=== PATIENT | male | born 1975 | race Caucasian/White ===

== ENCOUNTER 2018-07-10 08:10 | Day surgery (SDC) | payer BC, SELFPAY ==
[2018-05-22 14:25] VITALS: BMI 33.3
--- NOTE | 2018-07-05 15:25 | EKG12_ITS ---
Test Reason : PRE OP Blood Pressure : / mmHG Vent. Rate : 066 BPM Atrial Rate : 066 BPM P-R Int : 174 ms QRS Dur : 092 ms QT Int : 404 ms P-R-T Axes : 039 -60 040 degrees QTc Int : 423 ms Normal sinus rhythm Left axis deviation Abnormal ECG Confirmed by ADRIAN NAVARRO, SUSANA ([id number]), make up editor HOWARD DEAN ([id number]) on 07/08/2018 1:17:02 PM Referred By: Joseluis Samuels Confirmed By:SUSANA CAMPBELL MD
[2018-07-05 16:12] LABS: Hematocrit 45.8 % (40-54); Hemoglobin 15.8 g/dl (13.0-16.5); Mean Corp Hgb Conc 34.5 g/gl (32-36); Mean Corpuscular Hgb 29.3 pg (27.0-32.0); Mean Platelet Vol. 9.5 fl (6.2-12.0); Platelet Count 255 K/mm3 (150-450); RBC Distribution Width CV 12.1 % (11.6-14.6); RBC Distribution Width SD 37.4 fl (35.1-43.9); Red Blood Count 5.39 M/mm3 (4.6-6.2); White Blood Count 6.6 K/mm3 (4.4-11.0)
[2018-07-05 16:14] LABS: Scan Indicated on CBC? Y/N NO
[2018-07-05 16:29] LABS: Anion Gap 8 (5-15); BUN 11 mg/dL (7-18); Calcium,Total 8.6 mg/dL (8.5-10.1); Chloride 104 mmol/L (98-107); EST Glomerular Filtration Rate 78 mL/min (>60); Est Glom Filt Rate - Afr Amer 95 mL/min (>60); Glucose 92 mg/dL (74-106); Potassium 3.4 mmol/L (3.5-5.1); Sodium Level 144 mmol/L (136-145)
[2018-07-10] VITALS (7 sets, daily range): BP systolic 121–168; BP diastolic 73–91; PULSE 65–91; RESP 16–18; TEMP 36.1–36.9; O2SAT 96–100; BMI 32.5
--- NOTE | 2018-07-10 08:34 | HP.PCM_ITS ---
Problem List (1) Bilateral inguinal hernia Status: Acute Qualifiers: History of Present Illness Date of Admission: 07/10/18 Chief Complaint: Bilateral inguinal hernias The patient is a 42 year old M who presents for an elective bilateral inguinal hernia repair. Patient denies recent hospitalizations or illnesses since the last time we evaluated him in the office. He denies change in bowel habits. He denies groin pain today. Patient denies previous complications with anesthesia. He denies previous myocardial infarction, stroke, blood clots in his legs or lungs. He has never had to see a meals on wheels driver before. Patient's previous history per Dr. Samuels: JOSE CRYSTAL, is a 42 M who presents to the office today for surgical consultation regarding suspected bilateral inguinal hernias. The patient is referred by his primary care physician Dr Marvin Sue and a written copy of my surgical consult and recommendations will be returned to him. The patient works at [employer]. Within the past 6 months he has resumed doing weightlifting activities. Looking in the [place] notice a bulge in the right groin although he did not have a sudden injury. He was examined by Dr. Hubbard was noted to have distinctly a right inguinal hernia and likely a small left inguinal hernia. It is of additional note that October 02, [address] Gadiel Jo he had a colonoscopy. Localized area of mucosa in the terminal ileum moderately inflamed and ulcerated was identified. Biopsies showed focal active ileitis. Random colonic biopsies were not remarkable. The patient recalls that he was treated with he believes Entocort. Diarrhea symptoms seem to improve. He is not been on medication for a long period of time. He currently denies abdominal pain or acute problems. He states that pending the food he eats he can have some discomfort. This is not a significant issue for him he is not interested in pursuing that at this time. Past Medical History Medical History: Medical History (Last Reviewed 07/10/18 @ 08:33 by Liberty Davies PA-C) Bilateral inguinal hernia (Acute) K40.20 No significant medical problems Allergies No Known Allergies Allergy (Verified 06/05/18 15:49) Home Medications: Ambulatory Orders Medication Instructions Recorded NK 05/22/18 Surgical History: Surgical History (Last Reviewed 07/10/18 @ 08:33 by Liberty Davies PA-C) History of colonoscopy Onset Date: ~2015 Z98.890 Status post anal fissurectomy Onset Date: ~2002 Z98.890, Z87.19 Psychiatric History: No pertinent psych hx Lives: Spouse/ Significant Other Smoking Status: Never smoker - *Family History Maternal Family History: Family History (Last Reviewed 07/10/18 @ 08:33 by Liberty Davies PA-C) Mother Hypertension History Items: Hypertension Paternal Family History: Family History (Last Reviewed 07/10/18 @ 08:33 by Liberty Davies PA-C) Mother Hypertension History Items: No pertinent history Review of Systems Constitutional: Denies: Chills, Fever, Weight Change HEENT: Denies: Head Aches, Sinus Congestion, Sinus Drainage Cardiovascular: Denies: Chest Pain, Palpitations Respiratory: Denies: Cough, Shortness of breath at rest, Sputum production Gastrointestinal: Denies: Abdominal Pain, Nausea, Vomiting Genitourinary: Denies: Dysuria Musculoskeletal: Denies: Joint Pain, Joint Tenderness Skin: Denies: Rash, Wounds Neurological: Denies: Numbness, Tingling, Focal weakness Psychiatric: Denies: Anxiety, Depression, Homicidal Ideations, Suicidal Ideation s Hematologic/ Lymphatic: Denies: Easy Bruising, Easy Bleeding VTE Information - Inpt Only VTE Present on Admission: Yes VTE Mechan Device Prophylaxis: SCD's - Physical Exam General: Alert, Oriented x3, Cooperative HEENT: Atraumatic, PERRLA, EOMI, Normocephalic Neck: Supple, No JVD, Negative Carotid Bruits Lungs: Clear to auscultation, Normal air movement Cardiovascular: Regular rate, No murmurs Abdomen: Bowel Sounds Present, Soft, Non Tender, Hernia - Bilateral inguinal hernias Extremities: No edema, Capillary Refill Less than 3 Seconds Skin: No rashes, No breakdown Musculoskeletal: No Tenderness to Palpation of Joints or Extremities Neurological: Cranial nerves II-XII grossly intact Psych/Mental Status: Normal Affect, Appropriate Body Mass Index (BMI) 33.3 Assessment/Plan All Active Problems (Last Updated 05/22/18 @ 14:25 by Lindsay Ramos) Bilateral inguinal hernia (Acute) Dr. Samuels will plan to perform a laparoscopic bilateral inguinal hernia repair with mesh. Procedure risks, benefits and details have been reviewed with the patient. Patient and his spouse have been given the opportunity to ask and have questions answered. Patient verbally understands and agrees to proceed with the proposed procedure. Code Visit Inpatient E&M: 73279 Subs Hosp L1 - No Charge. Update H&P
--- NOTE | 2018-07-10 11:01 | DCINST_ITS ---
Discharge Diet: Light diet - advance as tolerated - if you have questions about your diet instructions, please talk to you doctor. Discharge Activity: May Not Drive - for 3-5 days or while taking narcotic pain medicine. May shower in (days): 1 Lifting Restrictions: 10 pounds Call your doctor if your incision/area has: Continuous Slow Oozing, Sudden Increased Bleeding, Increased Pain/ Swelling, Increased Redness, Foul Smelling Discharge Call your doctor if you observe: Fever of 101 or Higher Suture Line Care: Avoid Pulling/Pushing, Avoid Pinching/Bending Additional Dressing/Incision Instructions:: Change or remove dressing in 4 days. Leave steri-strips in place for 1 week. Allergies/Adverse Reactions: Allergies No Known Allergies Allergy (Verified 06/05/18 15:49) Medications to take at Discharge NK 05/22/18 Orders to be completed after discharge: 12 Lead EKG [CVS] Time Frame: 06/05/18, Facility: [facility], Location: Cardiovascular Services Basic Metabolic Profile (BMP) Time Frame: 06/05/18, Location: Laboratory CBC W/Diff, Automated Time Frame: 06/05/18, Location: Laboratory Primary Care Physician: Marvin Sue MD [Primary Care Provider] - Test Results: Test results from this visit will be discussed in further detail at your follow- up appointment, if applicable. Please Follow Up With: Joseluis Samuels MD - [phone] When: Call to make an appointment to be seen in about 10 days.
[2018-07-10] MEDS: Cefazolin 2 GM in 0.9% Normal Saline 100 ML IV (11:27)
--- NOTE | 2018-07-10 12:36 | PCM.OPRPT ---
Problem List (1) Bilateral inguinal hernia Status: Acute Qualifiers: Report of Operation Date of Procedure: 07/10/18 Pre-Operative Diagnosis: Bilateral inguinal hernias Post-Operative Diagnosis: Bilateral direct inguinal hernias Surgery/Procedure Performed:: Laparoscopic bilateral inguinal herniorrhaphy Description of Surgical Findings:: Timeout and informed consent was obtained. 42-year-old gent was taken out from placement table underwent general endotracheal intubation anesthesia. The abdomen is sterilely prepped draped. Ancef 2 g given intravenous preoperatively. 0.5% Marcaine was used as a local anesthetic. Throughout the procedure total 30 cc was used. Skin sites were pre-anesthetized. A vertical infraumbilical incision was created holding sutures of 0 Vicryl placed varies needle inserted saline drop test performed the abdomen was insufflated with CO2 to a pressure of 10 mmHg pressure. To me trocar inserted 10 lap scope inserted no evidence of intraocular injuries under direct visitation ileal inguinal nerve blocks were performed with a Marcaine. 5-minute ports were placed in the right left lower quadrant. Bilateral direct hernias were identified photographs obtained. The left hernia was addressed first the peritoneum superior lateral to the internal ring was incised carried medially the peritoneum was completely dissected free the direct defect identified the direct indirect and femoral area identified. A Bard 3D max large mesh lot number NET REPAIRER [id number] expiry date 04/12/2023 was selected. It was placed so as to cover the defect. It fit very nicely secure strap was used laterally superiorly and medially. I then elevated the peritoneum on the right side similarly. This was dissected free the direct hernia dissected free the mesh from the left side identified a large right-sided Bard 3 DMax mesh selected lot number NET REPAIRER [id number] expiry date 09/10/2022 it also fit very nicely into position. It was secured with secure strap. Excellent positioning was achieved the measurement in the middle and nicely covered bilateral groins. The abdomen was then deflated to 5 mmHg pressure. The peritoneum was approximated to itself. On the right side small amount of bleeding was obtained from the inferior epigastric. A small stab incision was created and using a 0 Vicryl in a GraNee needle a very loose through and through suture was used to help secure that. That was nicely achieved. Some of the peritoneum was also reapproximated using hemo-lock clip to assure that complete access to the mesh was obliterated. Both groins inspected both groins hemostatic both groins with complete obliteration of the mesh. Trochars were removed under visualization the abdomen was allowed to deflate of CO2 the fascia at the umbilicus proximal #2-0 Vicryl [id number] suture skin edges proximal interrupted 4 Monocryl subdermal stitches Steri-Strips Telfa and OpSite dressings applied sponge and instrument and needle counts blood loss was minimal. Was taken to the recovery area in satisfactory condition without apparent complication. Specimens none. Drains none. Blood loss minimal. Joseluis Samuels M.D., F.A.C.S. Type of Anesthesia:: General Anesthesiologist: Margarita Aguillon
[2018-07-10] MEDS: Bupivacaine Mpf 0.5% 30 ML VIAL (12:40)
--- NOTE | 2018-07-10 12:40 | OP.PCM_ITS ---
Problem List (1) Bilateral inguinal hernia Status: Acute Qualifiers: Report of Operation Date of Procedure: 07/10/18 Pre-Operative Diagnosis: Bilateral inguinal hernias Post-Operative Diagnosis: Bilateral direct inguinal hernias Surgery/Procedure Performed:: Laparoscopic bilateral inguinal herniorrhaphy Description of Surgical Findings:: Timeout and informed consent was obtained. 42-year-old gent was taken out from placement table underwent general endotracheal intubation anesthesia. The abdomen is sterilely prepped draped. Ancef 2 g given intravenous p reoperatively. 0.5% Marcaine was used as a local anesthetic. Throughout the procedure total 30 cc was used. Skin sites were pre-anesthetized. A vertical infraumbilical incision was created holding sutures of 0 Vicryl placed varies needle inserted saline drop test performed the abdomen was insufflated with CO2 to a pressure of 10 mmHg pressure. To me trocar inserted 10 lap scope inserted no evidence of intraocular injuries under direct visitation ileal inguinal nerve blocks were performed with a Marcaine. 5-minute ports were placed in the right left lower quadrant. Bilateral direct hernias were identified photographs obtained. The left hernia was addressed first the peritoneum superior lateral to the internal ring was incised carried medially the peritoneum was completely dissected free the direct defect identified the direct indirect and femoral area identified. A Bard 3D max large mesh lot number ENTERTAINMENT DIRECTOR [id number] expiry date 04/12/2023 was selected. It was placed so as to cover the defect. It fit very nicely secure strap was used laterally superiorly and medially. I then elevated the peritoneum on the right side similarly. This was dissected free the direct hernia dissected free the mesh from the left side identified a large right-sided Bard 3 DMax mesh selected lot number ENTERTAINMENT DIRECTOR [id number] expiry date 09/10/2022 it also fit very nicely into position. It was secured with secure strap. Excellent positioning was achieved the measurement in the middle and nicely covered bilateral groins. The abdomen was then deflated to 5 mmHg pressure. The peritoneum was approximated to itself. On the right side small amount of bleeding was obtained from the inferior epigastric. A small stab incision was created and using a 0 Vicryl in a GraNee needle a very loose through and through suture was used to help secure that. That was nicely achieved. Some of the peritoneum was also reapproximated using hemo-lock clip to assure that complete access to the mesh was obliterated. Both groins inspected both groins hemostatic both groins with complete obliteration of the mesh. Trochars were removed under visualization the abdomen was allowed to deflate of CO2 the fascia at the umbilicus proximal #2-0 Vicryl [id number] suture skin edges proximal interrupted 4 Monocryl subdermal stitches Steri-Strips Telfa and OpSite dressings applied sponge and instrument and needle counts blood loss was minimal. Was taken to the recovery area in satisfactory condition without apparent complication. Specimens none. Drains none. Blood loss minimal. Joseluis Samuels M.D., F.A.C.S. Type of Anesthesia:: General Anesthesiologist: Margarita Aguillon
[2018-07-10] MEDS: HYDROcodone Bitartrate/Apap 5/325 Tablet PO (15:25)
== END 2018-07-10 16:29 | disposition home or self-care (01) ==
LOC: SDC 08:11 → AC 08:11
PROVIDERS: Family Provider Family Medicine; PCP Family Medicine; Referring Provider Surgery; Visit Provider Surgery
PROC: (CPT 49650; principal; 2018-07-10 09:35)
DX: K40.20 Bilateral inguinal hernia, without obstruction or gangrene, not specified as recurrent (principal)
CPT/HCPCS: 49650; 36415; 80048; 85027; 93005; J7120; C1781; J2405

== ENCOUNTER 2020-11-24 18:43 | Emergency (ER) | payer BC, SELFPAY ==
[2018-07-10 08:38] VITALS: BMI 32.5
[2020-11-24 18:44] VITALS: BP 167/94; PULSE 93; RESP 16; TEMP 36.4; O2SAT 100; BMI 32.5
--- NOTE | 2020-11-24 18:47 | EKG12_ITS ---
Test Reason : CP Blood Pressure : / mmHG Vent. Rate : 097 BPM Atrial Rate : 097 BPM P-R Int : 182 ms QRS Dur : 092 ms QT Int : 364 ms P-R-T Axes : 041 262 037 degrees QTc Int : 462 ms Normal sinus rhythm Normal ECG Confirmed by ABDIEL NAVARRO, APPLE ([id number]), greeting card editor HOWARD DEAN ([id number]) on 11/26/2020 10:10:56 A M Referred By: STACEY/ASIYA Confirmed By:RASHAD MEADOWS MD
[2020-11-24 19:08] LABS: Absolute Lymphocyte Count 2.23 X10^3/uL (0.83-4.51); Absolute Neutrophil Count 3.9 X10^3/uL (2.0-7.7); Basophil# 0.05 X10^3/uL; Basophil% 0.7 % (0-1); Eosinophil# 0.18 X10^3/uL; Eosinophils% 2.6 % (0-5); Hematocrit 46.4 % (40-54); Hemoglobin 15.7 g/dL (13.0-16.5); Lymphocyte # 2.23 X10^3/ul (0.83-4.51); Lymphocyte % 32.5 % (19-41); Mean Corp Hgb Conc 33.8 g/dL (32-36); Mean Corpuscular Hgb 28.9 pg (27.0-32.0); Mean Corpuscular Volume 85.3 fL (80-94); Mean Platelet Vol. 9.5 fl (6.2-12.0); Monocyte# 0.45 X10^3/uL; Monocyte% 6.6 % (0-10); NRBC Flagged by Analyzer 0 % (0-5); Neutrophil # 3.94 X10^3/uL (2.7-7.7); Neutrophil % 57.3 % (47-70); Platelet Count 222 K/mm3 (150-450); RBC Distribution Width CV 11.9 % (11.6-14.6); RBC Distribution Width SD 36.7 fl (35.1-43.9); Red Blood Count 5.44 M/mm3 (4.6-6.2); White Blood Count 6.9 K/mm3 (4.4-11.0)
--- NOTE | 2020-11-24 19:18 | RAD_ITS ---
STUDY: X-RAY CHEST REASON FOR EXAM: Male, 45 years old. CP TECHNIQUE: Single AP portable view of the chest. COMPARISON: None. FINDINGS: The lungs are clear and expanded. There is no demonstrated pleural abnormality. Normal size heart. Normal mediastinum and dariela. Normal visualized pulmonary arteries. Normal visualized aortic arch and descending thoracic aorta. Normal visualized thoracic spine. Normal visualized ribs, clavicles, and shoulders. There is no demonstrated abnormality of the visualized soft tissue structures of the upper abdomen. RAD/Chest 1 View (Portable) IMPRESSION: Normal x-ray examination of the chest. Electronically Signed: Veronika Salguero MD at 19:40 EDT Tel , Service support ,
[2020-11-24 19:22] LABS: Anion Gap 7 (5-15); BUN 16 mg/dL (7-18); BUN/Creat Ratio 13.3 RATIO (10-20); Chloride 102 mmol/L (98-107); EST Glomerular Filtration Rate 70 mL/min (>60); Est Glom Filt Rate - Afr Amer 85 mL/min (>60); Estimated Creatinine Clearance 86.22 ml/min; Glucose 158 mg/dL (74-106); Potassium 3.2 mmol/L (3.5-5.1); Sodium Level 136 mmol/L (136-145)
--- NOTE | 2020-11-24 19:59 | ED.VIS.CHEST ---
HPI History of Present Illness Chief Complaint: Chest Pain Narrative Narrative: 45-year-old male presenting with chest pain. He states that he has been working outside for a number of days and not had any exertional chest pain. Patient states that he came in tonight from working outside and ate dinner and about an hour later he stood up and felt lightheaded and laid on the floor without falling. He states he was sweating initially. He describes tightness across his chest. He denies history of cardiac disease or pulmonary disease. Patient states he is never had high blood pressure but notes his blood pressure has been high today since he checked it after he felt lightheaded. patient is not have shortness of breath, fever, chills, myalgias, change in taste or smell. PFSH PFSH Medical History Bilateral inguinal hernia No significant medical problems Home Medications NK 07/22/18 [History Last Taken Unknown] Allergy/AdvReac Type Severity Reaction Status Date / Time No Known Allergies Allergy Verified 11/24/20 18:46 Family History Mother Hypertension Surgical History History of colonoscopy (~2015) S/P bilateral inguinal hernia repair Status post anal fissurectomy (~2002) Social History Smoking Status: Never smoker ROS ROS ED Constitutional Constitutional ED: Reports sweats; Denies chills or fever(s) Eyes Eyes: Denies blurry vision or change in vision ENT ENT ED: Denies rhinorrhea or sore throat Cardiovascular Cardiovascular: Reports chest pain; Denies palpitations or racing heartbeat Respiratory/Chest Respiratory/Chest: Denies cough, dyspnea, dyspnea on exertion or sputum Gastrointestinal Gastrointestinal: Denies abdominal pain, diarrhea, nausea or vomiting Genitourinary Genitourinary ED: Denies dysuria or hematuria Musculoskeletal Musculoskeletal: Denies arthralgias or myalgias Integumentary Denies Abrasions or rash Neurologic Neurologic: Denies headache(s) or paresthesias EXAM Physical Exam Const Vital Signs: 11/24/20 18:44 11/24/20 18:55 11/24/20 20:22 Temperature 97.6 F L Temperature Source Temporal Pulse Rate 93 89 Respiratory Rate 16 20 H Respiratory Effort Normal Non-Labored Blood Pressure 167/94 H 138/84 H Blood Pressure Mean 118 102 Pulse Ox 100 96 Oxygen Delivery Method Room Air Room Air Positive well nourished General Appearance ED: NAD; Negative for pallor HEENT Reports moist mucous membranes normocephalic and atraumatic Eyes PERRL and EOMs intact bilaterally Chest Wall inspection of chest normal and palpation of chest normal Resp normal respiratory effort and clear to auscultation bilaterally Effort and Inspection: respiratory distress Cardio regular rate and regular rhythm Extremity normal to inspection General Extremety ED: Negative for edema or tenderness General Extremity: Negative for edema Neuro oriented x3 Sensorium / Orientation: awake and alert Psych mental status grossly normal Skin no rashes or lesions noted and no wounds General Skin Exam: Negative for jaundice or pallor Heart Score History: Moderately Suspicious ECG: Normal Age: </= 45 years Risk Factors: No Risk Factors Troponin: </= Normal Limit Score: 1 MDM MDM MDM Narrative Medical decision making narrative: Patient presenting with chest pain and near syncopal event which occurred after eating this evening. He had an EKG performed on arrival which on my interpretation shows a sinus rhythm with a ventricular rate of 87 bpm, VA interval 140 ms, QRS duration 90 ms, QTC 430 ms. Patient declined anything for chest pain in the ED. His lungs are clear to auscultation. His vital signs are normal. Patient had initial lab work drawn which is also normal with exception of a potassium of 3.2 which was replaced orally. His high-sensitivity troponin is negative. I will repeat another troponin at 2 hours. Chest x-ray on my interpretation shows no acute cardiopulmonary process and the radiologist does agree. Patient states that he does have a distant history of a DVT in the past but states this is because he had a sedentary lifestyle and worked at home and set at a desk. He states that he has not been sedentary and has no other risk factors for DVT/PE. PERC negative. By Wells criteria he is low risk for PE. Patient had delta troponin which is negative. Patient is currently comfortable. Patient's blood pressure is mildly elevated still. He is counseled to keep the blood pressure diary can follow-up with his PCP. I do not believe this needs acute treatment, especially since the patient states he was a little lightheaded. Patient acknowledged understanding and will do this. He will follow-up with his PCP to ensure resolution. Impression: 1. Near syncope 2. Chest pain Lab Data Labs: Laboratory Results - last 24 hr 11/24/20 11/24/20 11/24/20 19:00 19:00 19:00 WBC 6.9 RBC 5.44 Hgb 15.7 Hct 46.4 MCV 85.3 MCH 28.9 MCHC 33.8 RDW Std Deviation 36.7 RDW Coeff of Castillo 11.9 Plt Count 222 MPV 9.5 Immature Gran % (Auto) 0.300 Neut % (Auto) 57.3 Lymph % (Auto) 32.5 Ingham % (Auto) 6.6 Eos % (Auto) 2.6 Baso % (Auto) 0.7 Absolute Neuts (auto) 3.9 Absolute Lymphs (auto) 2.23 Nucleated RBC % 0 Sodium 136 Potassium 3.2 L Chloride 102 Carbon Dioxide 27.0 Anion Gap 7 BUN 16 Creatinine 1.20 Estim Creat Clear Calc 86.22 Est GFR (MDRD) Af Amer 85 Est GFR (MDRD) Non-Af 70 BUN/Creatinine Ratio 13.3 Glucose 158 H Calcium 9.0 Troponin I High Sens 3.3 11/24/20 20:48 WBC RBC Hgb Hct MCV MCH MCHC RDW Std Deviation RDW Coeff of Castillo Plt Count MPV Immature Gran % (Auto) Neut % (Auto) Lymph % (Auto) Ingham % (Auto) Eos % (Auto) Baso % (Auto) Absolute Neuts (auto) Absolute Lymphs (auto) Nucleated RBC % Sodium Potassium Chloride Carbon Dioxide Anion Gap BUN Creatinine Estim Creat Clear Calc Est GFR (MDRD) Af Amer Est GFR (MDRD) Non-Af BUN/Creatinine Ratio Glucose Calcium Troponin I High Sens 3.8 Radiography Diagnostic Testing: Radiology Impression Chest X-Ray 11/24/20 19:18 IMPRESSION: Normal x-ray examination of the chest. Electronically Signed: Veronika Salguero MD at 19:40 EDT Tel , Service support , Discharge Plan Triage Chief Complaint: Chest Pain ED Provider: Kristopher Jacob Dx/Rx/DC Orders Instructions: ED Chest Pain, Noncardiac, ED Near-Fainting, Uncertain Cause Prescriptions: No Action NK RF: 0 Primary Care Provider: Marvin Sue Referrals: Marvin Sue MD [Primary Care Provider] - Disposition Disposition: Home, Self Care
[2020-11-24 20:00] LABS: Troponin-I HS 3.3 pg/mL (3.0-78.5)
[2020-11-24] MEDS: Potassium Chloride Oral Tablet 20 MEQ 40 MEQ PO (20:21)
[2020-11-24 20:22] VITALS: BP 138/84; PULSE 89; RESP 20; O2SAT 96
[2020-11-24 21:14] LABS: Troponin-I HS 3.8 pg/mL (3.0-78.5)
[2020-11-24 21:58] VITALS: BP 148/69; PULSE 71; RESP 16; O2SAT 98
== END 2020-11-24 21:59 | disposition home or self-care (01) ==
PROVIDERS: Emergency Provider Student in an Organized Health Care Education/Training Program; PCP Family Medicine
DX: R55 Syncope and collapse (principal); R07.9 Chest pain, unspecified
CPT/HCPCS: 71045; 80048; 84484; 85025; 93005; 99284; A4216

== ENCOUNTER 2021-03-30 14:29 | Emergency (ER) | payer BC, SELFPAY ==
[2021-03-30 14:30] VITALS: BP 169/90; PULSE 86; RESP 18; TEMP 36.6; O2SAT 99; BMI 33.2
--- NOTE | 2021-03-30 14:40 | EKG12_ITS ---
Test Reason : CP Blood Pressure : / mmHG Vent. Rate : 081 BPM Atrial Rate : 081 BPM P-R Int : 182 ms QRS Dur : 088 ms QT Int : 370 ms P-R-T Axes : 051 -78 043 degrees QTc Int : 429 ms Normal sinus rhythm Left axis deviation Low voltage QRS (Limb Leads) Poor R wave progression Abnormal ECG Confirmed by KAMRYN NAVARRO, MADDY ([id number]), graphics editor HOWARD DEAN ([id number]) on 04/01/2021 10:42:25 AM Referred By: ANIVAL Confirmed By:MADDY HARRY MD
[2021-03-30 14:47] LABS: Absolute Lymphocyte Count 2.74 X10^3/uL (0.83-4.51); Absolute Neutrophil Count 4.5 X10^3/uL (2.0-7.7); Basophil# 0.06 X10^3/uL; Basophil% 0.8 % (0-1); Eosinophil# 0.14 X10^3/uL; Eosinophils% 1.8 % (0-5); Hematocrit 46.8 % (40-54); Hemoglobin 16.5 g/dL (13.0-16.5); Lymphocyte # 2.74 X10^3/ul (0.83-4.51); Lymphocyte % 34.7 % (19-41); Mean Corp Hgb Conc 35.3 g/dL (32-36); Mean Corpuscular Hgb 29.4 pg (27.0-32.0); Mean Corpuscular Volume 83.4 fL (80-94); Monocyte# 0.45 X10^3/uL; Monocyte% 5.7 % (0-10); NRBC Flagged by Analyzer 0 % (0-5); Neutrophil # 4.47 X10^3/uL (2.7-7.7); Neutrophil % 56.6 % (47-70); Platelet Count 272 K/mm3 (150-450); RBC Distribution Width CV 11.8 % (11.6-14.6); RBC Distribution Width SD 35.9 fl (35.1-43.9); Red Blood Count 5.61 M/mm3 (4.6-6.2); White Blood Count 7.9 K/mm3 (4.4-11.0)
--- NOTE | 2021-03-30 14:48 | ED.VIS.CHEST ---
HPI History of Present Illness Chief Complaint: Chest Pain Narrative Narrative: 45-year-old male presenting with chest pain which feels like pressure in the left side of his chest and radiates down to his left arm. This started about 30 minutes prior to arrival. Patient states it was 5 of 10 and now is 3 of 10. He states he is noted for the last 24 hours that when he walks he is a little short of breath and becomes diaphoretic. He denies fever, chills, cough. Patient denies any cardiac history. He states he has no known medical problems. He has no family history of early cardiac disease. No history of DVT and no risk factors. [facility] PFS Medical History Bilateral inguinal hernia No significant medical problems Home Medications NK 03/30/21 [History Last Taken Unknown] Allergy/AdvReac Type Severity Reaction Status Date / Time No Known Allergies Allergy Verified 03/30/21 14:36 Family History Mother Hypertension Surgical History History of colonoscopy (~2015) S/P bilateral inguinal hernia repair Status post anal fissurectomy (~2002) Social History Smoking Status: Never smoker ROS ROS ED Constitutional Constitutional ED: Reports sweats; Denies fever(s) Eyes Eyes: Denies none ENT ENT ED: Denies rhinorrhea or sore throat Cardiovascular Cardiovascular: Reports as per HPI Respiratory/Chest Respiratory/Chest: Reports dyspnea and dyspnea on exertion Gastrointestinal Gastrointestinal: Denies abdominal pain, nausea or vomiting Genitourinary Genitourinary ED: Denies dysuria or hematuria Musculoskeletal Musculoskeletal: Denies arthralgias or myalgias Integumentary Denies rash Neurologic Neurologic: Denies headache(s) EXAM Physical Exam Const Vital Signs: 03/30/21 14:30 03/30/21 14:34 03/30/21 14:51 Temperature 97.8 F Temperature Source Temporal Pulse Rate 86 Respiratory Rate 18 Respiratory Effort Normal Blood Pressure 169/90 H Blood Pressure Mean 116 Pulse Ox 99 98 Oxygen Delivery Method Room Air Room Air 03/30/21 15:52 03/30/21 16:03 03/30/21 17:24 Temperature Temperature Source Pulse Rate 64 74 69 Respiratory Rate 12 16 18 Respiratory Effort Blood Pressure 140/85 H 148/85 H Blood Pressure Mean 103 106 Pulse Ox 99 98 98 Oxygen Delivery Method Room Air Room Air Room Air 03/30/21 17:40 Temperature Temperature Source Pulse Rate Respiratory Rate 16 Respiratory Effort Blood Pressure 149/92 H Blood Pressure Mean Pulse Ox 99 Oxygen Delivery Method Positive obese General Appearance ED: NAD; Negative for pallor Nutritional Appearance: obese HEENT Reports moist mucous membranes normocephalic and atraumatic Eyes PERRL and EOMs intact bilaterally Chest Wall inspection of chest normal and palpation of chest normal Resp normal respiratory effort Effort and Inspection: respiratory distress Cardio regular rate and regular rhythm Back/Spine no CVA tenderness Extremity normal to inspection General Extremety ED: Negative for edema General Extremity: Negative for edema Neuro oriented x3 Sensorium / Orientation: awake and alert Psych mental status grossly normal Skin General Skin Exam: Negative for jaundice or pallor Heart Score History: Slightly/Non-Suspicious ECG: Normal Age: </= 45 years Risk Factors: No Risk Factors Score: 0 MDM MDM MDM Narrative Medical decision making narrative: Patient presenting with chest pain which he like pressure in the left-sided chest radiates into his left arm. He has not had this before. Denies cardiac history. He has no DVT/PE risk factors. His EKG on my interpretation shows a sinus rhythm with a ventricular rate of 81 bpm without sign of ischemic change. Patient CBC is unremarkable. BMP shows normal renal function and electrolytes. Patient. Initial high-sensitivity troponin is 3. 2-hour delta troponin is 5 and there shows no significant interval change. Chest x-ray on my interpretation shows no acute cardiopulmonary process. When discussing the patient's lab work he questions whether he could be finding some kind of viral syndrome as his is sick at home. At this point he wants to be tested for Covid. Her rapid Covid is sent and is negative. At this point I feel the patient is safe to be discharged home. He is given return precautions. Impression: 1. Chest pain Lab Data Attestation: I reviewed the patient's lab results. Labs: Laboratory Results - last 24 hr 03/30/21 03/30/21 03/30/21 14:34 14:34 16:24 WBC 7.9 RBC 5.61 Hgb 16.5 Hct 46.8 MCV 83.4 MCH 29.4 MCHC 35.3 RDW Std Deviation 35.9 RDW Coeff of Castillo 11.8 Plt Count 272 MPV 9.0 Immature Gran % (Auto) 0.400 Neut % (Auto) 56.6 Lymph % (Auto) 34.7 [place] % (Auto) 5.7 Eos % (Auto) 1.8 Baso % (Auto) 0.8 Absolute Neuts (auto) 4.5 Absolute Lymphs (auto) 2.74 Nucleated RBC % 0 Sodium 140 Potassium 3.6 Chloride 105 Carbon Dioxide 28.0 Anion Gap 7 BUN 12 Creatinine 1.12 Estim Creat Clear Calc 92.38 Est GFR (MDRD) Af Amer 91 Est GFR (MDRD) Non-Af 76 BUN/Creatinine Ratio 10.7 Glucose 123 H Calcium 9.5 Troponin I High Sens 3 5 Radiography Diagnostic Testing: Clinical Impression(s) from Imaging Studies Chest X-Ray 03/30/21 14:56 IMPRESSION: Normal x-ray examination of the chest. Electronically Signed: Heladio Sidhu MD at 15:08 EST , Service support , Discharge Plan Triage Chief Complaint: Chest Pain ED Provider: Kristopher Jacob Dx/Rx/DC Orders Instructions: ED Chest Pain, Noncardiac Prescriptions: No Action NK RF: 0 Primary Care Provider: Marvin Sue Referrals: Marvin Sue MD [Primary Care Provider] - Disposition Disposition: Home, Self Care Discharge Date/Time: 03/30/21 17:41
[2021-03-30] MEDS: Aspirin 81 MG TAB.CHEW 324 MG PO (14:50)
[2021-03-30 14:51] VITALS: O2SAT 98
--- NOTE | 2021-03-30 14:56 | RAD_ITS ---
STUDY: X-RAY CHEST REASON FOR EXAM: Male, 45 years old. Left-sided chest pain with numbness and tingling. TECHNIQUE: Single AP portable view of the chest. COMPARISON: Comparison is made with prior examination dated 11/24/2020. FINDINGS: EKG electrodes are seen. The lungs are clear and expanded. There is no demonstrated pleural abnormality. Normal size heart. Normal mediastinum and dariela. Normal visualized pulmonary arteries. Normal visualized aortic arch and descending thoracic aorta. Normal visualized thoracic spine. Normal visualized ribs, clavicles, and shoulders. There is no demonstrated abnormality of the visualized soft tissue structures of the upper abdomen. RAD/Chest 1 View (Portable) IMPRESSION: Normal x-ray examination of the chest. Electronically Signed: Heladio Sidhu MD at 15:08 EST , Service support ,
[2021-03-30 15:04] LABS: Anion Gap 7 (5-15); BUN 12 mg/dL (7-18); BUN/Creat Ratio 10.7 RATIO (10-20); Calcium,Total 9.5 mg/dL (8.5-10.1); Chloride 105 mmol/L (98-107); Creatinine, Serum 1.12 mg/dL (0.70-1.30); EST Glomerular Filtration Rate 76 mL/min (>60); Est Glom Filt Rate - Afr Amer 91 mL/min (>60); Estimated Creatinine Clearance 92.38 ml/min; Glucose 123 mg/dL (74-106); Potassium 3.6 mmol/L (3.5-5.1); Sodium Level 140 mmol/L (136-145); Troponin-I HS 3 pg/mL (3.0-78.0)
[2021-03-30 15:52] VITALS: PULSE 64; RESP 12; O2SAT 99
[2021-03-30 16:03] VITALS: BP 140/85; PULSE 74; RESP 16; O2SAT 98
[2021-03-30 16:47] LABS: Troponin-I HS 5 pg/mL (3.0-78.0)
[2021-03-30 17:24] VITALS: BP 148/85; PULSE 69; RESP 18; O2SAT 98
[2021-03-30 17:40] VITALS: BP 149/92; RESP 16; O2SAT 99
== END 2021-03-30 17:41 | disposition home or self-care (01) ==
PROVIDERS: Emergency Provider Student in an Organized Health Care Education/Training Program; PCP Family Medicine
DX: R07.89 Other chest pain (principal); R94.31 Abnormal electrocardiogram [ECG] [EKG]; R06.02 Shortness of breath
CPT/HCPCS: 36415; 71045; 80048; 84484; 85025; 87426; 93005; 99285; A4216

== ENCOUNTER → 2022-07-25 | Outpatient (CLI) | payer BC, SELFPAY ==
--- NOTE | 2022-07-25 08:51 | BI_ITS ---
MAMMOGRAPHY - BILATERAL DIAGNOSTIC REASON FOR EXAM: Male, 46 years old. LUMP PERTINENT HISTORY: Non-contributory. TECHNIQUE: Digital examination. Mediolateral oblique (MLO) and craniocaudad (CC) views of both breasts were obtained, along with 3-D tomosynthesis. CAD: CAD was performed on this study. COMPARISON: None. FINDINGS: Breast Composition: The breasts are almost entirely fatty. There are no dominant masses or suspicious calcifications. No other significant abnormalities are identified. BI/DIAG MAMM W/CAD, BILAT IMPRESSION: Negative diagnostic mammogram. Yearly followup recommended. ASSESSMENT CATEGORY: BIRADS Category 1: Negative. A letter regarding these results will be sent to the patient by the facility within 30 days. FOLLOW UP RECOMMENDATION: No imaging follow up needed. (O) Approximately 10% of breast cancers are not detected by mammography. A normal mammogram should not delay biopsy of a clinically suspicious abnormality. Electronically Signed: David Blood MD at 10:05 EDT ,
== END | disposition home or self-care (01) ==
PROVIDERS: PCP Family Medicine; Referring Provider Nurse Practitioner Family; Visit Provider Nurse Practitioner Family
DX: R59.9 Enlarged lymph nodes, unspecified (principal)
CPT/HCPCS: 77062; 77066; G0279

== ENCOUNTER → 2024-09-04 | Outpatient (CLI) | payer BC, SELFPAY ==
--- NOTE | 2024-09-04 10:54 | VDLE_ITS ---
Reason For Study Reason For Study: LLE SWelling RIGHT LEFT GSV is normal. GSV is normal. CFV is compressible, spontaneous, phasic, competent CFV is compressible, spontaneous, phasic, competent, and demonstrates normal augmentation. and demonstrates normal augmentation. FV is compressible, spontaneous, phasic, competent FV is compressible, spontaneous, phasic, competent and and demonstrates normal augmentation. demonstrates normal augmentation. POP V is compressible, spontaneous, phasic, competent POP V is compressible, spontaneous, phasic, competent and demonstrates normal augmentation. and demonstrates normal augmentation. T/P Trunk is compressible. T/P Trunk is compressible. PTV is compressible. PTV is compressible. RT PerV is compressible. LT PerV is compressible. Procedure Acute deep vein thrombosis is noted in the This is a venous duplex using B-mode, color flow and Gastrocnemius V. It is dilated and NONCOMPRESSIBLE. spectral Doppler. Posterior calf Varicose Veins are Dilated and Exam performed in department. NONCOMPRESSIBLE. Finding is consistent with Acute SVT. The exam was diagnostic. A preliminary report was called and/or faxed to Dr. Tirado. VL/Venous Duplex US - Wai Extrem Interpretation Summary Acute deep vein thrombosis noted in the left gastrocnemius vein. Acute superficial vein thrombosis noted in the left calf varicosities Ordering Physician: NILESH TIRADO Referring Physician: Marvin Sue Performed By: Jhony Buckner, RVT
== END | disposition home or self-care (01) ==
LOC: CVS 10:49
PROVIDERS: PCP Family Medicine
DX: R60.0 Localized edema (principal)
CPT/HCPCS: 93970